=== PATIENT | female | born 1945 | race Hispanic/Latino ===

== ENCOUNTER 2021-11-18 08:50 | Day surgery (SDC) | payer MEDICARE ==
[~2021-11-18 08:50] MED LIST: SODIUM CHLORIDE 0.9% 1000 ML 1,000 ML IV SCH
[2021-11-18] MEDS ORDERED: propofoL 200 MG/20 ML VIAL IV ONE ×2 (10:24→11:54)
--- NOTE | 2021-11-18 10:28 | Anesthesia Consultation ---
Anesthesia Consult and Med Hx Date of service: 11/18/21 - Airway Anesthetic Teeth Evaluation: Poor (significant decay; denies loose teeth) ROM Head & Neck: Adequate Mental/Hyoid Distance: Adequate Mallampati Class: Class II Intubation Access Assessment: Probably Good - Pre-Operative Health Status ASA Pre-Surgery Classification: ASA4 Proposed Anesthetic Plan: MAC - Pulmonary Hx Smoking: No Hx Respiratory Symptoms: No Hx Sleep Apnea: Yes (+ CPAP) - Cardiovascular System Hx Hypertension: Yes Hx Heart Attack/AMI: No Hx Percutaneous Transluminal Coronary Angioplasty (PTCA): No Hx Cardia Arrhythmia: No - Central Nervous System CVA: No - Endocrine Hx Renal Disease: Yes (CKD 3) 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
--- NOTE | 2021-11-18 10:29 | Anesthesia Day of Surgery ---
Anesthesia Day of Surgery - Day of Surgery Patient Examined: Yes Patient H&P Reviewed: Yes Patient is NPO: Yes
--- NOTE | 2021-11-18 12:29 | Operative Report ---
Operative Report Operative Report: Colonoscopy ( To the ascending colon), with hot biopsy polypectomy DATE:11/18/2021 ATTENDING PHYSICIAN: Sonido Hernandez M.D. ESCALATOR INSTALLER: Sonido Hernandez M.D. INDICATIONS: Patient is a 76 y.o. female who presents for colorectal cancer screening . A colonoscopy is done to evaluate patient so that treatment may be directed based on the findings. CONSENT: Informed consent was obtained after the patient was advised regarding the nature of this procedure, its indications, potential benefits as well as possible complications including but not limited to bleeding, perforation, adverse reaction to medications, infection as well as cardiopulmonary complications. An informed written and verbal consent was then obtained after due opportunity was provided for questions and answers. MONITORING: Patient monitored continuously with pulse oximetry, electrocardiographic recordings as well as automatic blood pressure recordings. Patient remained stable throughout the procedure with no untoward events. PREOPERATIVE ASSESSMENT: Patient was assessed immediately prior to this procedure for capacity to tolerate moderate sedation/monitored anesthesia care. English anesthesiology association classification is 3. Mallampati class is 2. Hyomental distance is 3. INSTRUMENT: Olympus video colonoscope [id number], GIF HQ190 MEDICATIONS: Propofol given intravenously in divided doses. For details, please refer to anesthesia records. DESCRIPTION OF PROCEDURE: Patient was placed in the left lateral decubitus position, after achieving sedation, a digital rectal examination was performed following which the colonoscope was introduced into the anal verge and advanced under direct visualization to the ascending colon. The colon was very torturous procedure was technically difficult there was a types curve in the sigmoid colon necessitating changing the kaleidoscope. Patient was noted to have a large hernia with use of bowel in the hernia sac seen in the ascending colon. An attempt was made to reduce the hernia however not completely successful. Because the loops of bowel in the proximal ascending colon in the hernia sac could not be reduced, the cecum and the etiological valve could not be visualized. Color texture mucosa and anatomy of the colon were carefully examined with the colonoscope. The colonoscope was then gently withdrawn with careful inspection of all mucosa surfaces. The patient tolerated the procedure well with no complications. After completion of the examination, patient was transferred to the recovery room. The prep written regimen was GoLYTELY and the preparation was adequate. The following findings were noted. FINDINGS: Patient had diverticulosis involving the sigmoid colon and the descending colon. The cecum and Iliescu valve and most proximal aspect of the ascending colon cannot be visualized. Patient had diminutive polyps in the rectum which were removed by hot biopsy polypectomy. On the retroflexed view at the anal verge patient had internal hemorrhoids. IMPRESSION: [place] rectal polyp status post hot biopsy polypectomy colonic diverticulosis. Internal Hemorrhoids . PLAN: Follow-up pathology report high fiber diet. Repeat colonoscopy in 5 years
--- NOTE | 2021-11-18 13:19 | Operative Report ---
Operative Report Operative Report: DATE: 11/18/2021 Esophagogastroduodenoscopy with multiple mucosal biopsies. ATTENDING PHYSICIAN: Sonido Hernandez M.D. LOGGING SPECIALIST: Sonido Hernandez M.D. INDICATION: Patient is a 76-year-old female who presents with dyspepsia. 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 An upper endoscopy is done to assess patient so that treatment may be directed based on the findings. CONSENT: Informed consent was obtained after the patient was advised regarding the nature of this procedure, its indications, potential benefits as well as possible complications including but not limited to bleeding, perforation, adverse reaction to medications, infection as well as cardiopulmonary complications. An informed written and verbal consent was then obtained after due opportunity was provided for questions and answers. MONITORING: Patient monitored continuously with pulse oximetry, electrocardiographic recordings as well as automatic blood pressure recordings. Patient remained stable throughout the procedure with no untoward events. PREOPERATIVE ASSESSMENT: Patient was assessed immediately prior to this procedure for capacity to tolerate moderate sedation/monitored anesthesia care. [place] anesthesiology association classification is 2. Mallampatti class is 2. Hyomental distance is 3. INSTRUMENT: Olympus video endoscope GIF HQ190. MEDICATIONS: Propofol given intravenously in divided doses. For details, please refer to anesthesia records. DESCRIPTION OF PROCEDURE: Patient was placed in the left lateral decubitus position, after achieving sedation, the endoscope was introduced into the esophagus and advanced under direct visualization into the stomach and then to the second portion of the duodenum. Color texture mucosa and anatomy of the upper gastrointestinal tract was carefully examined with the endoscope which was then gently withdrawn with careful inspection of all mucosa surfaces. The patient tolerated the procedure well with no complications. After completion of the examination, patient was transferred to the recovery room. The preparation was fair. The following findings were noted. FINDINGS: The esophagus was normal. The line was irregular at 39 cm. There was erythema and erosion seen in the gastric [place]. Biopsy of the gastric tantrum was obtained for histopathology. There were no esophageal varices and there was no significant portal hypertensive gastropathy. The pylorus was normal. There was a small ulcer seen in the duodenal bulb. There were erosions seen in the duodenal bulb as well. The rest of the examination to the second portion was normal. IMPRESSION: Irregular Z Line Gastric antral erythema Gastric control erosions Small duodenal Zhao also Duodenal Zhao erosions. PLAN: Follow-up pathology report Treat with proton pump inhibitors Direct additional treatment based on the pathology report. There are no findings to suggest substantial portal hypertensive gastropathy in this patient.
--- NOTE | 2021-11-18 13:49 | Post Anesthesia Evaluation ---
- Post Anesthesia Evaluation Patient Participated: Yes Airway Patent: Yes Stable Respiratory Function: Yes Nausea/Vomiting: No Temp > 96.8F: Yes Pain Manageable: Yes Adequeate Hydration: Yes Anesthesia Complications: No
[2021-11-18 13:53] VITALS: BP 101/65
== END 2021-11-18 12:45 | disposition home or self-care (01) ==
LOC: GIO 08:50
PROVIDERS: ATTEND Internal Medicine Gastroenterology
DX: Z12.11 Encounter for screening for malignant neoplasm of colon (principal); R10.13 Epigastric pain; K70.30 Alcoholic cirrhosis of liver without ascites; K75.4 Autoimmune hepatitis; K57.30 Diverticulosis of large intestine without perforation or abscess without bleeding; K64.8 Other hemorrhoids; K62.1 Rectal polyp; K62.89 Other specified diseases of anus and rectum; K29.70 Gastritis, unspecified, without bleeding; K31.89 Other diseases of stomach and duodenum; G47.33 Obstructive sleep apnea (adult) (pediatric); E66.9 Obesity, unspecified; I12.9 Hypertensive chronic kidney disease with stage 1 through stage 4 chronic kidney disease, or unspecified chronic kidney disease; N18.30 Chronic kidney disease, stage 3 unspecified; E03.9 Hypothyroidism, unspecified; Z98.890 Other specified postprocedural states; Z68.34 Body mass index [BMI] 34.0-34.9, adult; Z79.899 Other long term (current) drug therapy
CPT/HCPCS: 43239; 45384; 88305; J2704; J7030; 88342